=== PATIENT | female | born 1945 | race African-American/Black ===

== ENCOUNTER 2017-08-01 10:54 | Emergency (ER) | payer MEDICARE ==
[~2017-08-01] VITALS: Ht 162.6 cm; Wt 158.8 kg
[~2017-08-01 10:54] MED LIST: HYDROCHLOROTHIA25 MG PO; LISINOPRIL20 MG PO; ULTRAM 50MG50 MG PO
--- OUTSIDE RECORDS SUMMARY | 2017-08-01 10:58 | XMS REPORT | Clinical Summary ---
Author Author [facility] Organization [facility] Address Unknown Phone Unavailable Care Team Providers Care Supervisor Locomotive Name Role Phone PCP Unavailable Allergies No Known Allergies Current Medications Prescription Sig. Disp. Refills Start End Date Status Date meloxicam (MOBIC) 15 MG Take 15 mg by mouth Active tablet daily. HYDROcodone-acetaminophen Take 1 tablet by mouth Active (NORCO 5-325) 5-325 mg every 6 (six) hours as per tablet needed for Pain. losartan-hydrochlorothiaz Take 1 tablet by mouth Active anny (HYZAAR) 100-12.5 mg daily. per tablet aspirin 81 MG EC tablet Take 81 mg by mouth Active daily. NIFEdipine (ADALAT CC) 30 Take 1 tablet (30 mg 30 tablet 0 20 09/14/19 Active MG 24 hr tablet total) by mouth daily as 17 18 needed (for sbp > 160 mmHg). metoprolol (LOPRESSOR) 25 Take 1 tablet (25 mg 60 tablet 0 09/14/19 Active MG tablet total) by mouth 2 (two) 17 times daily. metoprolol (LOPRESSOR) 25 Take 12.5 mg by mouth 06/13/19/20 Discontin MG tablet daily At 2100 . 15 17 ued metoprolol (LOPRESSOR) 25 Take 1 tablet (25 mg 60 tablet 0 09/14/1920 Discontin MG tablet total) by mouth daily At 17 17 ued 2100 . NIFEdipine (ADALAT CC) 30 Take 1 tablet (30 mg 30 tablet 0 09/13/09/14/19 Discontin MG 24 hr tablet total) by mouth daily. 17 17 ued Active Problems Problem Noted Date Substernal chest pain 08/31/2015 Abnormal positron emission tomography (PET) scan, equivocal cardiac PET 06-11-2014 Pulmonary nodules, per 06-09-2014 CT-Scan 06/10/2014 Adenopathy, per 06-09-2104 CT-Scan of chest 06/10/2014 Chest pain 06/09/2014 Systemic primary arterial hypertension 06/09/2014 Lymphedema, h/o 06/09/2014 Personal history of breast cancer 06/09/[address] 06/09/2014 Hypertensive urgency 06/09/2014 Abnormal EKG, per 06-09-2014 EKG 06/09/2014 RBBB (right bundle branch block), per 06-09-2014 EKG 06/09/2014 LVH (left ventricular hypertrophy), per 06-09-2014 EKG 06/09/2014 Resolved Problems Problem Noted Date Resolved Date AICD discharge 09/11/2016 09/13/2016 New onset of congestive heart failure (HCC) 09/11/2016 09/13/2016 Encounters Date Type Specialty Care Team Description 04/24/2017 Emergency Emergency Medicine Christopher Franklin DO Other headache syndrome (Primary Dx);Severe uncontrolled hypertension;Lymphedema of both lower extremities 04/24/2017 Orders Only General Internal Medicine 09/11/2016 Emergency Cardiology Tracey Harris New onset of congestive - MD Te heart failure (HCC) 09/13/2016 Nadine Arias MD (Primary Dx);Essential Baudilio Marsh MD hypertension Freeman Kessler MD after 07/31/2016 Social History Tobacco Use Types Packs/Day Years Used Date Former Smoker Smokeless Tobacco: Never Used Alcohol Use Drinks/Week oz/Week Comments No Sex Assigned at Date Recorded Not on file Last Filed Vital Signs Vital Sign Reading Time Taken Blood Pressure 150/69 04/24/2017 11:12 AM [employer] Pulse 65 04/24/2017 11:12 AM [employer] Temperature 36.9 C (98.4 F) 04/24/2017 11:12 AM [employer] Respiratory Rate 20 04/24/2017 11:12 AM [employer] IN[employer] Oxygen Saturation 100% 04/24/2017 11:12 AM [employer] IN[employer]ER Inhaled Oxygen - - Concentration Weight 143.8 kg (317 lb) 04/24/2017 12:56 AM [employer] IN[employer] Height 162.6 cm (5' 4") 04/24/2017 12:56 AM [employer] IN[employer] Body Mass Index 54.41 04/24/2017 12:56 AM [employer] IN[employer] Plan of Treatment Not on file Procedures Procedure Name Priority Date/Time Associated Diagnosis Comments CRITICAL CARE Routine 09/12/2016 Results for this 10:57 PM CDT procedure are in the results section. after 07/31/2016 Results * ED ECG Interpretation (04/24/2017 10:15 AM) Only the most recent of 2 results within the time period is included. Christopher Bro DO 04/24/2017 10:15 AM ECG/EKG Interpretation Date/Time: 04/24/2017 10:14 AM Performed by: CHRISTOPHER FRANKLIN Authorized by: CHRISTOPHER FRANKLIN The ECG was interpreted by ED physician. This ECG was compared with previous ECG(s).The ECG is interpreted as sinus rhythm. Rate is normal rate. Abnormal conduction noted: LAFB. ST segments abnormal. T waves abnormal. [place] is normal. Clinical Impression: abnormal ECGECG reviewed and does not meet STEMI criteria. * ECG 12 lead (04/24/2017 9:52 AM) Only the most recent of 2 results within the time period is included. Specimen Performing Laboratory [employer] MUSE Narrative Ventricular Rate 96 BPM Atrial Rate 96 BPM P-R Interval 152 ms QRS Duration 160 ms Q-T Interval 426 ms QTC Calculation(Bazett) 538 ms P [place] 56 degrees R [place] -63 degrees T [place] -1 degrees Normal sinus rhythm Right bundle branch block Left anterior fascicular block Bifascicular block Left ventricular hypertrophy with QRS widening Abnormal ECG When compared with ECG of 11-SEP-2016 09:42, No significant change was found Confirmed by MD YULIANA, IHAB ([id number]) on 04/25/2017 1:26:06 PM Procedure Note Interface, External Ris In - 04/25/2017 1:26 PM SW[employer] IN[employer]ER Ventricular Rate 96 BPM Atrial Rate 96 BPM P-R Interval 152 ms QRS Duration 160 ms Q-T Interval 426 ms QTC Calculation(Bazett) 538 ms P [place] 56 degrees R [place] -63 degrees T [place] -1 degrees Normal sinus rhythm Right bundle branch block Left anterior fascicular block Bifascicular block Left ventricular hypertrophy with QRS widening Abnormal ECG When compared with ECG of 11-SEP-2016 09:42, No significant change was found Confirmed by MD YULIANA, IHAB ([id number]) on 04/25/2017 1:26:06 PM * CBC with platelet count + automated diff (04/24/2017 9:02 AM) Only the most recent of 2 results within the time period is included. Component Value Ref Range WBC 4.4 3.5 - 10.5 K/ L RBC 4.77 3.93 - 5.22 M/ L Hemoglobin 12.3 11.2 - 15.7 GM/DL Hematocrit 39.8 34.1 - 44.9 % MCV 83.4 79.4 - 94.8 fL MCH 25.8 25.6 - 32.2 pg MCHC 30.9 (L) 32.2 - 35.5 GM/DL RDW 17.3 (H) 11.7 - 14.4 % Platelets 230 150 - 450 K/CU MM MPV 11.3 9.4 - 12.3 fL nRBC 0 0 - 0 /100 WBC % Neutros 62 % % Lymphs 23 % % Monos 13 % % Eos 1 % % Baso 1 % # Neutros 2.72 1.56 - 6.13 K/ L # Lymphs 1.01 (L) 1.18 - 3.74 K/ L # Monos 0.56 (H) 0.24 - 0.36 K/ L # Eos 0.06 0.04 - 0.36 K/ L # Baso 0.02 0.01 - 0.08 K/ L Immature 0 0 - 1 % Granulocytes-Relative Specimen Performing Laboratory Blood - Line, Venous [address] [address] * Troponin I (04/24/2017 9:02 AM) Only the most recent of 2 results within the time period is included. Component Value Ref Range Troponin I <0.01 0.00 - 0.03 ng/mL Specimen Performing Laboratory Blood - Line, Venous [address] [address] Narrative Troponin I (TnI) levels must be interpreted in the context of the presenting symptoms and the clinical findings. Elevated TnI levels indicate myocardial damage, but are not specific for ischemic heart disease. Elevated TnI levels are seen in patients with other cardiac conditions (including myocarditis and congestive heart failure), and slight TnI elevations occur in patients with other conditions, including sepsis, renal failure, acidosis, acute neurological disease, and persistent tachyarrhythmia. * CBC with platelet count + automated diff (04/24/2017 9:02 AM) Only the most recent of 2 results within the time period is included. Specimen Performing Laboratory Blood Narrative The following orders were created for panel order CBC with platelet count + automated diff. Procedure Abnormality Status --------- - ------ CBC with platelet count ...[[id number]]AbnormalFinal result Please view results for these tests on the individual orders. * B-type Natriuretic Factor (BNP) (04/24/2017 9:02 AM) Only the most recent of 2 results within the time period is included. Component Value Ref Range BNP 42 0 - 100 pg/mL Specimen Performing Laboratory Blood - Line, Venous [address] [address] * Creatine Kinase (CK), Total and MB (04/24/2017 9:02 AM) Component Value Ref Range Total CK 62 29 - 200 U/L CK-MB 1.0 0.0 - 6.6 ng/mL MB Relative Index 1.6 % Specimen Performing Laboratory Blood - Line, Venous [address] [address] Narrative CK-MB Reference Range: <6.7Normal 6.7-10.0Borderline >10.0 Abnormal * Basic metabolic panel (Na, K+, Cl, CO2, Glu, Ca, BUN, Cr) (04/24/2017 9:02 AM ) Only the most recent of 3 results within the time period is included. Component Value Ref Range Sodium 143 136 - 145 meq/L Potassium 4.3 3.5 - 5.1 meq/L Chloride 108 (H) 98 - 107 meq/L CO2 26 22 - 29 meq/L BUN 10 7 - 21 mg/dL Creatinine 0.96 0.57 - 1.25 mg/dL Glucose 99 70 - 105 mg/dL Calcium 10.4 (H) 8.4 - 10.2 mg/dL EGFR 69Comment: ESTIMATED GFR IS NOT ACCURATE mL/min/1.73 sq m CREATININE CLEARANCE IN PREDICTING GLOMERULAR FILTRATION RATE. ESTIMATED GFR IS NOT APPLICABLE FOR DIALYSIS PATIENTS. Specimen Performing Laboratory Blood - Line, Venous [facility] [address] [place] [id number] * CT brain without IV contrast (04/24/2017 1:51 AM) Specimen Performing Laboratory [facility] Narrative FINAL REPORT EXAMINATIONNONCONTRAST HEAD CT SCAN CLINICAL HISTORY:Headache, hypertension COMPARISON CT: None EPISODE OF CARE: Initial TECHNIQUE: Axial tomographic images were obtained through the brain from the vertex to the skull base without intravenous contrast. The exam was performed according to our departmental dose optimization program which includes automated exposure control, adjustment of the mA and/or kV according to patient's size and/or use of iterative reconstructive technique. FINDINGS: No evidence of acute intracranial hemorrhage, mass effect, cerebral edema, midline shift, hydrocephalus or abnormal extra-axial fluid collection. Generalized volume loss, mild deep white matter changes and intracranial calcific atherosclerosis are noted. Although there are no definite findings to suggest evolving ischemia, CT is not sensitive for the detection of early or small infarcts. Minimal mucosal thickening is noted in the paranasal sinuses without significant fluid. Tympanic cavities and mastoid air cells are pneumatized. No evidence of an acute skull fracture or acute orbital process. IMPRESSION: No specific evidence of an acute cranial process. Involutional and mild deep white matter/microvascular changes. If there is persistent clinical concern, MRI could be performed for further evaluation. Signed: Ede Clark MD Report Verified Date/Time:04/24/2017 01:59:21 Reading Location: [address] Reading Room Procedure Note Interface, External Ris In - 04/24/2017 2:01 AM SWITCHBOARD INSTALLER FINAL REPORT EXAMINATION NONCONTRAST HEAD CT SCAN CLINICAL HISTORY:Headache, hypertension COMPARISON CT: None EPISODE OF CARE: Initial TECHNIQUE: Axial tomographic images were obtained through the brain from the vertex to the skull base without intravenous contrast. The exam was performed according to our departmental dose optimization program which includes automated exposure control, adjustment of the mA and/or kV according to patient's size and/or use of iterative reconstructive technique. FINDINGS: No evidence of acute intracranial hemorrhage, mass effect, cerebral edema, midline shift, hydrocephalus or abnormal extra-axial fluid collection. Generalized volume loss, mild deep white matter changes and intracranial calcific atherosclerosis are noted. Although there are no definite findings to suggest evolving ischemia, CT is not sensitive for the detection of early or small infarcts. Minimal mucosal thickening is noted in the paranasal sinuses without significant fluid. Tympanic cavities and mastoid air cells are pneumatized. No evidence of an acute skull fracture or acute orbital process. IMPRESSION: No specific evidence of an acute cranial process. Involutional and mild deep white matter/microvascular changes. If there is persistent clinical concern, MRI could be performed for further evaluation. Signed: Ede Clark MD Report Verified Date/Time: 04/24/2017 01:59:21 Reading Location: [address] Reading Room * RHYTHM STRIP - SCAN (10/14/2016 10:51 AM) Only the most recent of 2 results within the time period is included. * Critical Care (09/12/2016 10:57 PM) Narrative Nadine Arias MD 09/12/2016 10:57 PM Critical Care Performed by: NADINE ARIAS Authorized by: NADINE ARIAS Total critical care time: 60 minutes Critical care time was exclusive of separately billable procedures and treating other patients. Critical care was time spent personally by me on the following activities: discussions with consultants, evaluation of patient's response to treatment, obtaining history from patient or surrogate, ordering and review of laboratory studies, pulse oximetry, review of old charts, development of treatment plan with patient or surrogate, discussions with primary provider, examination of patient, ordering and performing treatments and interventions, ordering and review of radiographic studies and re-evaluation of patient's condition. * Comprehensive metabolic panel (09/11/2016 8:40 AM) Component Value Ref Range Protein, Total 7.3 6.0 - 8.3 gm/dL Albumin 3.7 3.5 - 5.0 g/dL Alkaline Phosphatase 96 40 - 150 U/L Total Bilirubin 0.9 0.2 - 1.2 mg/dL Sodium 140 136 - 145 meq/L Potassium 4.3 3.5 - 5.1 meq/L Chloride 109 (H) 98 - 107 meq/L CO2 23 22 - 29 meq/L BUN 14 7 - 21 mg/dL Creatinine 0.86 0.57 - 1.25 mg/dL Glucose 96 70 - 105 mg/dL Calcium 9.7 8.4 - 10.2 mg/dL AST 18 5 - 34 U/L ALT 11 6 - 55 U/L EGFR 79Comment: ESTIMATED GFR IS NOT ACCURATE mL/min/1.73 sq m CREATININE CLEARANCE IN PREDICTING GLOMERULAR FILTRATION RATE. ESTIMATED GFR IS NOT APPLICABLE FOR DIALYSIS PATIENTS. Specimen Performing Laboratory Blood [facility] [address] [address] * XR chest 2 views (09/11/2016 7:45 AM) Specimen Performing Laboratory [facility] Narrative FINAL REPORT Chest, two views HISTORY: Chest pain, history of sarcoidosis COMPARISON: Chest x-ray from 10/01/2015 DISCUSSION: Moderate central venous congestion. Scattered reticulonodular opacities in the lungs. Prominence of the pulmonary vasculature. Mild enlargement of the cardiomediastinal silhouette, unchanged from prior examination. No large pleural effusion or pneumothorax. Visualized portions of the upper abdomen are unremarkable. No acute osseous abnormalities. IMPRESSION: Moderate central venous congestion and enlargement of the cardiomediastinal silhouette. Additional scattered reticulonodular opacities throughout the lungs may be seen in pulmonary edema, however another diffuse interstitial process such as malignancy or infection is not entirely excluded. Recommend correlation with history and symptoms to assess need for chest CT. Signed: Shaquille Houston MD Report Verified Date/Time:09/11/2016 07:48:23 Reading Location: [facility] B1 C013Y CT Body Reading Room Procedure Note Interface, External Ris In - 09/11/2016 7:50 AM CDT FINAL REPORT Chest, two views HISTORY: Chest pain, history of sarcoidosis COMPARISON: Chest x-ray from 10/01/2015 DISCUSSION: Moderate central venous congestion. Scattered reticulonodular opacities in the lungs. Prominence of the pulmonary vasculature. Mild enlargement of the cardiomediastinal silhouette, unchanged from prior examination. No large pleural effusion or pneumothorax. Visualized portions of the upper abdomen are unremarkable. No acute osseous abnormalities. IMPRESSION: Moderate central venous congestion and enlargement of the cardiomediastinal silhouette. Additional scattered reticulonodular opacities throughout the lungs may be seen in pulmonary edema, however another diffuse interstitial process such as malignancy or infection is not entirely excluded. Recommend correlation with history and symptoms to assess need for chest CT. Signed: Shaquille Houston MD Report Verified Date/Time: 09/11/2016 07:48:23 Reading Location: [facility] B1 C013Y CT Body Reading Room after 07/31/2016
--- OUTSIDE RECORDS SUMMARY | 2017-08-01 10:58 | XMS REPORT ---
Author Author [facility] Address Unknown Phone Unavailable Care Team Providers Care Wood Cabinetmaker Name Role Phone KWASI, CHRISTOPHER Unavailable Unavailable OFORDEME, JOSE Unavailable Unavailable Problems This patient has no known problems. Allergies, Adverse Reactions, Alerts This patient has no known allergies or adverse reactions. Medications This patient has no known medications. Results Test Description Test Time Test Comments Text Results Atomic Results Result Comments B-TYPE NATRIURETIC FACTOR (BNP) 2017-04-24 09:40:00 B-TYPE NATRIURETIC PEPTIDE (BEAKER) (test gtyo=991) 42 pg/mL 0-100 CREATINE KINASE (CK), TOTAL AND [id number] 09:39:00* Test Item Value Reference Range Comments CREATINE KINASE TOTAL (BEAKER) (test kzsf=885) 62 U/L 29-200 CREATINE KINASE-MB (BEAKER) (test midd=034) 1.0 ng/mL 0.0-6.6 CREATINE KINASE-MB INDEX (BEAKER) (test cmvn=646) 1.6 % CK-MB Reference Range:<6.7 Normal6.7-10.0 Borderline>10.0 AbnormalTROPONIN [id number] 09:39:00* Test Item Value Reference Range Comments TROPONIN I (BEAKER) (test yfnm=034) < ng/mL 0.00-0.03 Troponin I (TnI) levels must be interpreted [...] failure, acidosis, acute neurological disease, and persistent tachyarrhythmia.BASIC METABOLIC [id number] 09:36:00 * Test Item Value Reference Range Comments SODIUM (BEAKER) (test fhqc=097) 143 meq/L 136-145 POTASSIUM (BEAKER) (test sabz=806) 4.3 meq/L 3.5-5.1 CHLORIDE (BEAKER) (test tskv=665) 108 meq/L 98-107 CO2 (BEAKER) (test jqmw=063) 26 meq/L 22-29 BLOOD UREA NITROGEN (BEAKER) (test ilzj=674) 10 mg/dL 7-21 CREATININE (BEAKER) (test rqly=554) 0.96 mg/dL 0.57-1.25 GLUCOSE RANDOM (BEAKER) (test adpk=612) 99 mg/dL 70-105 CALCIUM (BEAKER) (test qbkt=484) 10.4 mg/dL 8.4-10.2 EGFR (BEAKER) (test vlap=5249) 69 mL/min/1.73 sq m ESTIMATED GFR IS NOT ACCURATE CREATININE CLEARANCE IN PREDICTING GLOMERULAR FILTRATION RATE. ESTIMATED GFR IS NOT APPLICABLE FOR DIALYSIS PATIENTS. CBC W/PLT COUNT & AUTO [id number] 09:10:00* Test Item Value Reference Range Comments WHITE BLOOD CELL COUNT (BEAKER) (test gavo=470) 4.4 K/ L 3.5-10.5 RED BLOOD CELL COUNT (BEAKER) (test hyds=904) 4.77 M/ L 3.93-5.22 HEMOGLOBIN (BEAKER) (test tynr=022) 12.3 GM/DL 11.2-15.7 HEMATOCRIT (BEAKER) (test rmvs=999) 39.8 % 34.1-44.9 MEAN CORPUSCULAR VOLUME (BEAKER) (test lkwn=397) 83.4 fL 79.4-94.8 MEAN CORPUSCULAR HEMOGLOBIN (BEAKER) (test jdlf=273) 25.8 pg 25.6-32.2 MEAN CORPUSCULAR HEMOGLOBIN CONC (BEAKER) (test pbkp=250) 30.9 GM/DL 32.2- 35.5 RED CELL DISTRIBUTION WIDTH (BEAKER) (test adya=372) 17.3 % 11.7-14.4 PLATELET COUNT (BEAKER) (test mqfr=389) 230 K/CU MM 150-450 MEAN PLATELET VOLUME (BEAKER) (test bvvt=648) 11.3 fL 9.4-12.3 NUCLEATED RED BLOOD CELLS (BEAKER) (test whxh=183) 0 /100 WBC 0-0 NEUTROPHILS RELATIVE PERCENT (BEAKER) (test msci=757) 62 % LYMPHOCYTES RELATIVE PERCENT (BEAKER) (test sbwy=260) 23 % MONOCYTES RELATIVE PERCENT (BEAKER) (test qcbb=849) 13 % EOSINOPHILS RELATIVE PERCENT (BEAKER) (test xilu=381) 1 % BASOPHILS RELATIVE PERCENT (BEAKER) (test dkxe=537) 1 % NEUTROPHILS ABSOLUTE COUNT (BEAKER) (test dgps=398) 2.72 K/ L 1.56-6.13 LYMPHOCYTES ABSOLUTE COUNT (BEAKER) (test bqxs=715) 1.01 K/ L 1.18-3.74 MONOCYTES ABSOLUTE COUNT (BEAKER) (test kbfz=193) 0.56 K/ L 0.24-0.36 EOSINOPHILS ABSOLUTE COUNT (BEAKER) (test ejtz=979) 0.06 K/ L 0.04-0.36 BASOPHILS ABSOLUTE COUNT (BEAKER) (test tglt=796) 0.02 K/ L 0.01-0.08 IMMATURE GRANULOCYTES-RELATIVE PERCENT (BEAKER) (test crrg=7820) 0 % 0-1 CT, BRAIN, WITHOUT [id number] 01:59:00Reason for exam:->HEADACHEReason for exam:->HYPERTENSIONWhat is the patient's sedation requirement?->No SedationFINAL REPORT EXAMINATION NONCONTRAST HEAD CT SCAN CLINICAL HISTORY:Headache, hypertension COMPARISON CT: None EPISODE OF CARE : Initial TECHNIQUE: Axial tomographic images were obtained [...] performed for further evaluation. Signed: Ede Clark MDReport Verified Date/Time: 04/24/2017 01:59:21 Reading Location: [address] Reading Room C METABOLIC [id number] 06:28:00* Test Item Value Reference Range Comments SODIUM (BEAKER) (test vdsr=020) 140 meq/L 136-145 POTASSIUM (BEAKER) (test spzc=173) 3.9 meq/L 3.5-5.1 CHLORIDE (BEAKER) (test idyw=615) 108 meq/L 98-107 CO2 (BEAKER) (test dojy=554) 21 meq/L 22-29 BLOOD UREA NITROGEN (BEAKER) (test saeh=866) 18 mg/dL 7-21 CREATININE (BEAKER) (test wjhp=853) 0.95 mg/dL 0.57-1.25 GLUCOSE RANDOM (BEAKER) (test xakc=304) 103 mg/dL 70-105 CALCIUM (BEAKER) (test ihwp=655) 9.5 mg/dL 8.4-10.2 EGFR (BEAKER) (test hkjj=3953) 70 mL/min/1.73 sq m ESTIMATED GFR IS NOT ACCURATE CREATININE CLEARANCE IN PREDICTING GLOMERULAR FILTRATION RATE. ESTIMATED GFR IS NOT APPLICABLE FOR DIALYSIS PATIENTS. BASIC METABOLIC [id number] 06:26:00* Test Item Value Reference Range Comments SODIUM (BEAKER) (test xlxq=419) 140 meq/L 136-145 POTASSIUM (BEAKER) (test fwan=945) 3.7 meq/L 3.5-5.1 CHLORIDE (BEAKER) (test ahku=607) 107 meq/L 98-107 CO2 (BEAKER) (test sapa=223) 23 meq/L 22-29 BLOOD UREA NITROGEN (BEAKER) (test qdin=421) 16 mg/dL 7-21 CREATININE (BEAKER) (test vmuh=250) 0.88 mg/dL 0.57-1.25 GLUCOSE RANDOM (BEAKER) (test kzaf=417) 86 mg/dL 70-105 CALCIUM (BEAKER) (test snxb=808) 9.7 mg/dL 8.4-10.2 EGFR (BEAKER) (test zlcb=5886) 77 mL/min/1.73 sq m ESTIMATED GFR IS NOT ACCURATE CREATININE CLEARANCE IN PREDICTING GLOMERULAR FILTRATION RATE. ESTIMATED GFR IS NOT APPLICABLE FOR DIALYSIS PATIENTS. TROPONIN [id number] 09:51:00* Test Item Value Reference Range Comments TROPONIN I (BEAKER) (test eqno=936) 0.01 ng/mL 0.00-0.03 Effective 02/12/2014: Reference Range ChangeNew: 0.00-0.03 Previous 0.00- 0.15Troponin I (TnI) levels must be interpreted in [...] failure, acidosis, acute neurological disease, and persistent tachyarrhythmia.B-TYPE NATRIURETIC FACTOR (BNP)2016-09-11 09:49:00* Test Item Value Reference Range Comments B-TYPE NATRIURETIC PEPTIDE (BEAKER) (test yrpd=165) 73 pg/mL 0-100 COMPREHENSIVE METABOLIC [id number] 09:43:00* Test Item Value Reference Range Comments TOTAL PROTEIN (BEAKER) (test fted=357) 7.3 gm/dL 6.0-8.3 ALBUMIN (BEAKER) (test dxgb=2288) 3.7 g/dL 3.5-5.0 ALKALINE PHOSPHATASE (BEAKER) (test pncb=084) 96 U/L 40-150 BILIRUBIN TOTAL (BEAKER) (test jjaq=424) 0.9 mg/dL 0.2-1.2 SODIUM (BEAKER) (test gsva=179) 140 meq/L 136-145 POTASSIUM (BEAKER) (test nnmt=630) 4.3 meq/L 3.5-5.1 CHLORIDE (BEAKER) (test drpf=786) 109 meq/L 98-107 CO2 (BEAKER) (test rxbw=221) 23 meq/L 22-29 BLOOD UREA NITROGEN (BEAKER) (test cijj=649) 14 mg/dL 7-21 CREATININE (BEAKER) (test mayu=706) 0.86 mg/dL 0.57-1.25 GLUCOSE RANDOM (BEAKER) (test srmm=686) 96 mg/dL 70-105 CALCIUM (BEAKER) (test pvey=993) 9.7 mg/dL 8.4-10.2 AST (SGOT) (BEAKER) (test ewht=924) 18 U/L 5-34 ALT (SGPT) (BEAKER) (test mvxm=058) 11 U/L 6-55 EGFR (BEAKER) (test jfqu=5780) 79 mL/min/1.73 sq m ESTIMATED GFR IS NOT ACCURATE CREATININE CLEARANCE IN PREDICTING GLOMERULAR FILTRATION RATE. ESTIMATED GFR IS NOT APPLICABLE FOR DIALYSIS PATIENTS. CBC W/PLT COUNT & AUTO [id number] 09:35:00* Test Item Value Reference Range Comments WHITE BLOOD CELL COUNT (BEAKER) (test pjpx=709) 3.5 K/ L 4.0-10.0 RED BLOOD CELL COUNT (BEAKER) (test jbjo=767) 5.04 M/ L 4.00-5.00 HEMOGLOBIN (BEAKER) (test ndxd=709) 12.2 GM/DL 12.0-15.0 HEMATOCRIT (BEAKER) (test gxwh=136) 41.7 % 36.0-45.0 MEAN CORPUSCULAR VOLUME (BEAKER) (test pknn=697) 82.6 fL 82.0-99.0 MEAN CORPUSCULAR HEMOGLOBIN (BEAKER) (test xuno=549) 24.2 pg 27.0-33.0 MEAN CORPUSCULAR HEMOGLOBIN CONC (BEAKER) (test osgi=419) 29.3 GM/DL 32.0- 36.0 RED CELL DISTRIBUTION WIDTH (BEAKER) (test hnzc=803) 18.4 % 10.3-14.2 PLATELET COUNT (BEAKER) (test gtva=100) 195 K/CU MM 150-430 MEAN PLATELET VOLUME (BEAKER) (test lycz=739) 9.6 fL 6.5-10.5 NUCLEATED RED BLOOD CELLS (BEAKER) (test ucox=303) 0 /100 WBC 0-0 NEUTROPHILS RELATIVE PERCENT (BEAKER) (test ygxz=171) 57 % LYMPHOCYTES RELATIVE PERCENT (BEAKER) (test qbpn=864) 29 % MONOCYTES RELATIVE PERCENT (BEAKER) (test oevi=495) 12 % EOSINOPHILS RELATIVE PERCENT (BEAKER) (test iocf=337) 2 % BASOPHILS RELATIVE PERCENT (BEAKER) (test soll=847) 0 % NEUTROPHILS ABSOLUTE COUNT (BEAKER) (test qkcl=903) 1.99 K/ L 1.80-8.00 LYMPHOCYTES ABSOLUTE COUNT (BEAKER) (test deuz=991) 1.01 K/ L 1.48-4.50 MONOCYTES ABSOLUTE COUNT (BEAKER) (test yuje=854) 0.41 K/ L 0.00-1.30 EOSINOPHILS ABSOLUTE COUNT (BEAKER) (test haev=021) 0.09 K/ L 0.00-0.50 BASOPHILS ABSOLUTE COUNT (BEAKER) (test bepa=160) 0.01 K/ L 0.00-0.20 0.00
[2017-08-01] MEDS ORDERED: DIPHTH/TETANUS/ACEL. PERTUSSIS 0.5 ML SYR IM ONE (11:30)
[2017-08-01] MEDS ORDERED: BACITRACIN ZINC 15 GM OINT TOP ONE (11:30)
[2017-08-01 11:56] VITALS: BP 160/70
[2017-08-01] MEDS ORDERED: LOPRESSOR HCT1 EAC1 (12:20)
[2017-08-01] MEDS ORDERED: MELOXICAM7.5 MG PO (12:21)
[2017-08-01] MEDS ORDERED: LEVOTHYROXINE75 MCG PO (12:22)
[2017-08-01] MEDS ORDERED: NORCO 10-325 T1 EACH (12:22)
== END 2017-08-01 11:58 | disposition home or self-care (01) ==
LOC: FSED 10:54
DX: S90.511A Abrasion, right ankle, initial encounter (principal); L03.115 Cellulitis of right lower limb; W22.8XXA Striking against or struck by other objects, initial encounter; Z23 Encounter for immunization; I10 Essential (primary) hypertension; E66.01 Morbid (severe) obesity due to excess calories; Z68.44 Body mass index [BMI] 60.0-69.9, adult
CPT/HCPCS: 82948; 96372; 99283